=== PATIENT | male | born 1930 | race Two or more races ===

== ENCOUNTER 2018-04-27 11:38 | Emergency (ER) | payer OTHER ==
[~2018-04-27] VITALS: Ht 167.6 cm; Wt 69.9 kg
[~2018-04-27 11:38] MED LIST: AVODART0.5 MG; HYZAAR 100-121 UDTAB
[2018-04-27] MEDS ORDERED: DAFLONEX-XL TA1 EACH (12:08)
== END 2018-04-27 15:27 | disposition home or self-care (01) ==
LOC: ER 11:38
DX: S30.0XXA Contusion of lower back and pelvis, initial encounter (principal); W18.39XA Other fall on same level, initial encounter; Y93.89 Activity, other specified; Y92.89 Other specified places as the place of occurrence of the external cause; Y99.8 Other external cause status

== ENCOUNTER 2018-06-30 12:33 | Emergency (ER) | payer OTHER ==
[~2018-06-30] VITALS: Ht 165.1 cm; Wt 68.5 kg
[~2018-06-30 12:33] MED LIST changes: +DAFLONEX-XL TA1 EACH
[2018-06-30] MEDS ORDERED: CANABIS (12:48)
== END 2018-06-30 13:33 | disposition home or self-care (01) ==
LOC: ER 12:33
DX: S30.0XXA Contusion of lower back and pelvis, initial encounter (principal); S70.02XA Contusion of left hip, initial encounter; W18.39XA Other fall on same level, initial encounter; Y93.89 Activity, other specified; Y92.098 Other place in other non-institutional residence as the place of occurrence of the external cause; Y99.8 Other external cause status

== ENCOUNTER 2018-12-19 23:59 | Emergency (ER) | payer OTHER ==
[~2018-12-19] VITALS: Ht 165.1 cm; Wt 68.5 kg
[~2018-12-19 23:59] MED LIST changes: +CANABIS
== END 2018-12-20 03:20 ==
LOC: ER 23:59
DX: M79.672 Pain in left foot (principal)

== ENCOUNTER 2019-07-18 11:50 | Outpatient (CLI) | payer OTHER | END 2019-07-18 12:00 | disposition home or self-care (01) | LOC: LAB 11:50 | DX: J11.1 Influenza due to unidentified influenza virus with other respiratory manifestations (principal); D64.0 Hereditary sideroblastic anemia ==

== ENCOUNTER 2019-07-30 10:20 | Outpatient (CLI) | payer OTHER | END 2019-07-30 10:32 | disposition home or self-care (01) | LOC: MRI 10:20 | DX: M46.47 Discitis, unspecified, lumbosacral region (principal) | CPT/HCPCS: 72148 ==